=== PATIENT | female | born 1940 | race Caucasian/White ===

== ENCOUNTER → 2017-10-04 | Outpatient (CLI) | payer MEDICARE ==
[2014-10-19 12:02] VITALS: BMI 27.7
[~2017-10-04] MED LIST: ALPR-1 PO; ALPR-429 PO; ALPR-459 PO; AMOX875T60 PO; ASCO500C9 PO; ASPI-1471 PO; ASPI-757 PO; ATEN1TAB38 PO; CHOL20007 PO; CINN500C12 PO; CYAN500T54 PO; FAMO20TA28 PO; FISH1CAP15 PO; FLU45SYR25 IM ONLY; FOLI0.8T29 PO; GARL10005 PO; LEVO75TA73 PO; LUTE20CA11 PO; LUTE20TA PO; MAGN100T5 PO; MAGN250T34 PO; MECL-81 PO; MECL25TA9 PO; MULT1TAB64 PO; NAPR220C12 PO; NITR-105 PO; OMEG-24 PO; ONDA-2 PO; ONDA4TAB SL; POTA20TA85 PO; POTA20TA94 PO; PRED-1 PO; PRED20TA6 PO; PROM-110 PO; SCOT TD; SERT-184 PO; SIMV-49 PO; TRAM-420 PO; TRAZ-156 PO; UBID100C44 PO; UBID100C48 PO; VITA-175 PO; ZINC50TA43 PO
[2017-10-04 09:38] LABS: PLATELET COUNT, AUTOMATED 273 K/uL (150-450)
[2017-10-04 10:03] LABS: LDL CHOLESTEROL 131 mg/dl
== END ==
LOC: LAB 09:18
PROVIDERS: ATTEND Emergency Medicine
DX: E87.6 Hypokalemia (principal); E03.9 Hypothyroidism, unspecified; I10 Essential (primary) hypertension
CPT/HCPCS: 36415; 82040; 82247; 82310; 82374; 82435; 82465; 82565; 82947; 83718; 84075; 84132; 84155; 84295; 84443; 84450; 84460; 84478; 84520; 85025

== ENCOUNTER → 2017-12-30 | Outpatient (CLI) | payer MEDICARE ==
[2014-10-19 12:02] VITALS: BMI 27.7
[~2017-12-30] MED LIST changes: +DIPH0.5D12 IM; +EZET10TA41 PO
== END ==
LOC: LAB 08:46
PROVIDERS: ATTEND Emergency Medicine
DX: R19.7 Diarrhea, unspecified (principal)
CPT/HCPCS: 83630; 87045; 87177; 87324; 87338; 87449; G0328; 82274

== ENCOUNTER 2018-12-04 15:16 | Emergency (ER) | payer MEDICARE ==
[2014-10-19 12:02] VITALS: Wt 72.8 kg
[~2018-12-04 15:16] MED LIST changes: -DIPH0.5D12 IM; +DIPH0.5S2 IM; +FLU180SY11 IM; +MIRT-1 PO; +MIRT7.5T2 PO; -TRAZ-156 PO; +TRAZ50TA52 PO; +UBID100C34 PO; -UBID100C44 PO
--- NOTE | 2018-12-04 15:26 | ER Report ---
History and Physical Time Seen By MD: 15:26 HPI/ROS 78 y/o pleasant female with a history of migraine headaches, essential tremor, depression, and anxiety. She said she started the day with a mild OLGUIN. She and her daughter went on errands, and had lunch. After lunch her OLGUIN worsened, she became anxious, nauseous and weak. Now complains of generalized weakness and a OLGUIN. Not worse of life. No meningismus. No fever/chills. No abdominal pain. Remainder of the 14 system rev: Yes Allergies: Coded Allergies: trazodone (Verified Allergy, Severe, 12/04/18) oxycodone (Verified Allergy, Intermediate, NAUSEA/VOMITING, 12/04/18) hydrocodone (Unverified Allergy, Unknown, NAUSEA/VOMITING, 12/04/18) sertraline (Verified Adverse Reaction, Severe, Nausea, insomnia, anger, irritability, 12/04/18) tramadol (Verified Adverse Reaction, Severe, Tremors and jitteriness, 12/04/18) simvastatin (Verified Adverse Reaction, Intermediate, leg weakness, 12/04/18) Home Meds Active Scripts Atenolol/Chlorthalidone (ATENOLOL-CHLORTHAL 50-25 TB) 1 Each Tablet, 1 TAB PO QDAY, #90 TAB 2 Refills Prov:DENZEL IVEY MD 10/30/18 Mirtazapine (MIRTAZAPINE) 7.5 Mg Tablet, 7.5 MG PO DAILY, #90 TAB 3 Refills Prov:DENZEL IVEY MD 07/20/18 Alprazolam (ALPRAZOLAM) 0.25 Mg Tab.rapdis, 1 TAB PO BID, #120 TAB 4 Refills Take 1 in am, 1 in afternoon and two at night, total of 4/day. Prov:DENZEL IVEY MD 07/20/18 Potassium Chloride (KLOR-CON M20) 20 Meq Tab.er.prt, 1 TAB PO TID, #270 TAB 3 Refills Prov:DENZEL IVEY MD 05/04/18 Promethazine Hcl (PROMETHAZINE HCL) 25 Mg Tablet, 25 MG PO TID PRN for NAUSEA/VOMITING, #60 TAB 3 Refills Prov:DENZEL IVEY MD 05/02/18 Levothyroxine Sodium (LEVOTHYROXINE SODIUM) 75 Mcg Tablet, 75 MCG PO QDAY, #90 TAB 4 Refills Prov:DENZEL IVEY MD 05/02/18 Famotidine (PEPCID) 20 Mg Tablet, 20 MG PO QDAY, #90 TAB 3 Refills Prov:DENZEL IVEY MD 10/11/17 Reported Medications Magnesium Glycinate (MAG GLYCINATE) 100 Mg Tablet, 4 TAB PO DAILY 07/15/16 Meclizine Hcl (MECLIZINE HCL) 25 Mg Tablet, 1 TAB PO PRN PRN for DIZZINESS 03/23/16 Vitamin B Complex (B COMPLEX) 1 Each Tablet, 1 EACH PO QDAY, TAB 05/14/15 Fish Oil/Dha/Epa (FISH OIL 1,200 MG FISH OIL) 1 Each Capsule, 1 EACH PO BID, CAPSULE 05/13/15 Lutein (LUTEIN) 20 Mg Capsule, 1 CAP PO QDAY, CAPSULE 05/13/15 Aspirin (ASPIRIN) 325 Mg Tablet, 1 TAB PO QDAY, TAB 05/13/15 Multivitamin (MULTI VITAMIN DAILY) 1 Each Tablet, 1 EACH PO QDAY 04/07/15 Reviewed Nurses Notes: Yes Old Medical Records Reviewed: Yes Hx Smoking: No Smoking Status: Never Smoker Hx Substance Use Disorder: No Constitutional Vital Sign - Last 24 Hours 12/04/18 12/04/18 12/04/18 12/04/18 15:20 15:30 15:45 15:46 Temp 98.5 Pulse 76 ??? 73 Resp 18 22 B/P (MAP) 190/93 187/97 (127) 185/90 (121) Pulse Ox 90 87 O2 Delivery Room Air 12/04/18 12/04/18 12/04/18 12/04/18 16:00 16:15 16:30 16:45 Pulse 74 73 69 Resp 19 32 17 18 B/P (MAP) 177/88 (117) 179/99 (125) 167/82 (110) 165/78 (107) Pulse Ox 94 O2 Delivery Nasal Cannula O2 Flow Rate 1 12/04/18 12/04/18 12/04/18 12/04/18 16:50 16:55 17:00 17:05 Pulse ??? 70 68 68 Resp 17 7 14 20 B/P (MAP) 153/80 (104) Pulse Ox 82 12/04/18 12/04/18 12/04/18 17:10 17:15 17:20 Pulse 68 70 68 Resp 16 17 11 B/P (MAP) 153/70 (97) Physical Exam General Appearance: The patient is alert, has no immediate need for airway protection and no current signs of toxicity. Eyes: Pupils equal and round no injection. Respiratory: Chest is non tender, lungs are clear to auscultation. Cardiac: RRR, no m/r/g Gastrointestinal: Abdomen is soft and non tender, no masses, bowel sounds normal. Musculoskeletal: No focal TTP Neck: Neck is supple and non tender. Extremities have full range of motion and are non tender. Skin: No rashes or lesions. Neuro: CN in tact, normal strength and sensation, gait at baseline. DIFFERENTIAL DIAGNOSIS: After history and physical exam differential diagnosis was considered for headache including but not limited to subarachnoid hemorrhage, migraine headache, tension headache and infectious causes such as meningitis, pharyngitis and sinusitis. Medical Decision Making Data Points Result Diagram: 12/04/18 1555 12/04/18 1538 Laboratory Hematology Test 12/04/18 15:38 12/04/18 15:55 12/04/18 16:25 Sodium Level 135 mmol/L (137-145) Potassium Level 3.4 mmol/L (3.5-5.0) Chloride Level 98 mmol/L (98-107) Carbon Dioxide Level 25 mmol/L (22-31) Blood Urea Nitrogen 13 mg/dl (7-18) Creatinine 0.70 mg/dl (0.52-1.04) Glomerular Filtration Rate Calc > 60.0 Random Glucose 96 mg/dl (75-110) Calcium Level 9.5 mg/dl (8.4-10.2) Total Bilirubin 0.4 mg/dl (0.2-1.3) Aspartate Amino Transf (AST/SGOT) 37 U/L (0-35) Alanine Aminotransferase (ALT/SGPT) 36 U/L (0-56) Alkaline Phosphatase 84 U/L (0-126) Total Protein 8.3 g/dl (6.3-8.2) Albumin 4.6 g/dl (3.5-5.0) Red Blood Count 4.73 M/uL (4.17-5.56) Mean Corpuscular Volume 86.6 fL (80.0-96.0) Mean Corpuscular Hemoglobin 30.2 pg (26.0-33.0) Mean Corpuscular Hemoglobin Concent 34.9 g/dL (32.0-36.0) Red Cell Distribution Width 14.2 % (11.5-14.5) Mean Platelet Volume 7.0 fL (7.2-11.1) Neutrophils (%) (Auto) 59.7 % (39.4-72.5) Lymphocytes (%) (Auto) 27.2 % (17.6-49.6) Monocytes (%) (Auto) 10.1 % (4.1-12.4) Eosinophils (%) (Auto) 2.0 % (0.4-6.7) Basophils (%) (Auto) 1.0 % (0.3-1.4) Nucleated RBC Relative Count (auto) 0.0 /100WBC Neutrophils # (Auto) 5.1 K/uL (2.0-7.4) Lymphocytes # (Auto) 2.3 K/uL (1.3-3.6) Monocytes # (Auto) 0.9 K/uL (0.3-1.0) Eosinophils # (Auto) 0.2 K/uL (0.0-0.5) Basophils # (Auto) 0.1 K/uL (0.0-0.1) Nucleated RBC Absolute Count (auto) 0.00 K/uL Urine Color Yellow Urine Clarity Slightly-cloudy Urine pH 7.0 pH (4.8-9.5) Urine Specific [place] 1.008 Urine Protein Negative mg/dL (NEGATIVE) Urine Glucose (UA) Negative mg/dL (NEGATIVE) Urine Ketones Negative mg/dL (NEGATIVE) Urine Blood Negative (NEGATIVE) Urine Nitrite Negative (NEGATIVE) Urine Bilirubin Negative (NEGATIVE) Urine Urobilinogen Negative mg/dL (0.2-1.9) Urine Leukocyte Esterase Moderate (NEGATIVE) Urine RBC 3 /HPF (0-2/HPF) Urine WBC 4 /HPF (0-5/HPF) Urine Squamous Epithelial Cells None /LPF (NONE-FEW) Urine Bacteria Negative /HPF (NONE-FEW) Urine Mucus None /HPF (NONE-FEW) Chemistry Test 12/04/18 15:38 12/04/18 15:55 12/04/18 16:25 Glomerular Filtration Rate Calc > 60.0 Calcium Level 9.5 mg/dl (8.4-10.2) Total Bilirubin 0.4 mg/dl (0.2-1.3) Aspartate Amino Transf (AST/SGOT) 37 U/L (0-35) Alanine Aminotransferase (ALT/SGPT) 36 U/L (0-56) Alkaline Phosphatase 84 U/L (0-126) Total Protein 8.3 g/dl (6.3-8.2) Albumin 4.6 g/dl (3.5-5.0) White Blood Count 8.6 k/uL (4.5-11.0) Red Blood Count 4.73 M/uL (4.17-5.56) Hemoglobin 14.3 g/dL (12.0-16.0) Hematocrit 41.0 % (34.0-47.0) Mean Corpuscular Volume 86.6 fL (80.0-96.0) Mean Corpuscular Hemoglobin 30.2 pg (26.0-33.0) Mean Corpuscular Hemoglobin Concent 34.9 g/dL (32.0-36.0) Red Cell Distribution Width 14.2 % (11.5-14.5) Platelet Count 233 K/uL (150-450) Mean Platelet Volume 7.0 fL (7.2-11.1) Neutrophils (%) (Auto) 59.7 % (39.4-72.5) Lymphocytes (%) (Auto) 27.2 % (17.6-49.6) Monocytes (%) (Auto) 10.1 % (4.1-12.4) Eosinophils (%) (Auto) 2.0 % (0.4-6.7) Basophils (%) (Auto) 1.0 % (0.3-1.4) Nucleated RBC Relative Count (auto) 0.0 /100WBC Neutrophils # (Auto) 5.1 K/uL (2.0-7.4) Lymphocytes # (Auto) 2.3 K/uL (1.3-3.6) Monocytes # (Auto) 0.9 K/uL (0.3-1.0) Eosinophils # (Auto) 0.2 K/uL (0.0-0.5) Basophils # (Auto) 0.1 K/uL (0.0-0.1) Nucleated RBC Absolute Count (auto) 0.00 K/uL Urine Color Yellow Urine Clarity Slightly-cloudy Urine pH 7.0 pH (4.8-9.5) Urine Specific [place] 1.008 Urine Protein Negative mg/dL (NEGATIVE) Urine Glucose (UA) Negative mg/dL (NEGATIVE) Urine Ketones Negative mg/dL (NEGATIVE) Urine Blood Negative (NEGATIVE) Urine Nitrite Negative (NEGATIVE) Urine Bilirubin Negative (NEGATIVE) Urine Urobilinogen Negative mg/dL (0.2-1.9) Urine Leukocyte Esterase Moderate (NEGATIVE) Urine RBC 3 /HPF (0-2/HPF) Urine WBC 4 /HPF (0-5/HPF) Urine Squamous Epithelial Cells None /LPF (NONE-FEW) Urine Bacteria Negative /HPF (NONE-FEW) Urine Mucus None /HPF (NONE-FEW) Urinalysis Test 12/04/18 16:25 Urine Color Yellow Urine Clarity Slightly-cloudy Urine pH 7.0 pH (4.8-9.5) Urine Specific [place] 1.008 Urine Protein Negative mg/dL (NEGATIVE) Urine Glucose (UA) Negative mg/dL (NEGATIVE) Urine Ketones Negative mg/dL (NEGATIVE) Urine Blood Negative (NEGATIVE) Urine Nitrite Negative (NEGATIVE) Urine Bilirubin Negative (NEGATIVE) Urine Urobilinogen Negative mg/dL (0.2-1.9) Urine Leukocyte Esterase Moderate (NEGATIVE) Urine RBC 3 /HPF (0-2/HPF) Urine WBC 4 /HPF (0-5/HPF) Urine Squamous Epithelial Cells None /LPF (NONE-FEW) Urine Bacteria Negative /HPF (NONE-FEW) Urine Mucus None /HPF (NONE-FEW) ED Course/Re-evaluation ED Course No focal neuro deficits. No new findings on CT head. No fever to suggest infectious cause of OLGUIN. OLGUIN improved with Toradol. No chest pain, abdominal pain, SOB, n/v/d. Was at her baseline earlier today other than her OLGUIN. Ambulated in the ED, and daughter states her gait is at baseline. No UTI, no PNA. No need for further imaging. I think she has a migraine OLGUIN which caused her to become anxious. She states that she feels better. Her daughter watches her closely, and will monitor her over the next few days. She will follow up with Dr. Ivey. Decision to Disposition Date: Dec 04, 2018 Decision to Disposition Time: 17:47 Depart Departure Latest Vital Signs Vital Signs Date Time Temp Pulse Resp B/P (MAP) Pulse Ox O2 Delivery O2 Flow Rate FiO2 12/04/18 17:20 68 11 12/04/18 17:15 153/70 (97) 12/04/18 16:50 82 12/04/18 16:00 Nasal Cannula 1 12/04/18 15:20 98.5 Impression: Primary Impression: Migraine headache Condition: Improved Disposition: HOME OR SELF-CARE Referrals: DENZEL IVEY MD (PCP) Patient Instructions: Migraine Headache (ED) Problem Qualifiers Primary Impression: Migraine headache Migraine type: without aura Status migrainosus presence: without status migrainosus Intractability: not intractable Qualified Codes: G43.009 - Migraine without aura, not intractable, without status migrainosus NIKOLAI URBAN MD Dec 04, 2018 15:26
--- NOTE | 2018-12-04 15:47 | RADIOLOGY IMAGING REPORT ---
FACILITY: [facility] PATIENT NAME: Ann Hall : 1940 MR: [id number] V: [id number] EXAM DATE: ORDERING PHYSICIAN: NIKOLAI URBAN TECHNOLOGIST: Location: [facility] - [place] Patient: Ann Hall : 1940 Visit/Account:[id number] Date of Sevice: 12/04/[address] scan without contrast COMPARISONS: None ADDITIONAL PERTINENT HISTORY: Headache with altered mental status. TECHNIQUE: Multiple axial images were obtained from the skull base to the vertex without IV contrast . One of the following dose optimization techniques was utilized in the performance of this exam: Aut omated exposure control; adjustment of the mA and/or kV according to the patient's size; or use of an iterative reconstruction technique. Specific details can be referenced in the facility's radiology CT exam operational policy. FINDINGS: Midline shift: Negative Ventricles: Mild enlargement of the lateral and third ventricles. Brain parenchyma: Patchy hypoattenuation within the periventricular and subcortical white matter, no nspecific but likely representing small vessel ischemic change on a chronic basis. No intraparenchyma l hemorrhage. Extra-axial spaces: Mild cerebral atrophy. Intracranial vasculature: Negative Osseous structures: Negative Paranasal sinuses and mastoid air cells: Negative Surrounding soft tissues and orbits: Negative IMPRESSION: 1. Age related changes as described above. 2. No evidence of acute intracranial pathology. Report Dictated By: Karl Steven MD at 12/04/2018 3:40 PM Report E-Signed By: Karl Steven MD at 12/04/2018 3:42 PM WSN:[id number]
[2018-12-04] MEDS ORDERED: NS(*) 0.9% 1000 ML BAG 1,000 ML IV ONE (16:00)
--- NOTE | 2018-12-04 16:03 | EKG ---
FACILITY: [facility] PATIENT NAME: CHEMA TORRES : [id number] MR: [id number] V: [id number] EXAM DATE: ORDERING PHYSICIAN: NIKOLAI URBAN TECHNOLOGIST: Test Reason : Blood Pressure : / mmHG Vent. Rate : 070 BPM Atrial Rate : 070 BPM P-R Int : 218 ms QRS Dur : 094 ms QT Int : 398 ms P-R-T Axes : 048 -15 004 degrees QTc Int : 429 ms Sinus rhythm with 1st degree AV block Left axis Nonspecific interventricular conduction delay Nonspecific T wave findings which are similar to previous EKGs Abnormal ECG Confirmed by DORIS ROCHA ([id number]) on 12/04/2018 8:20:28 PM Referred By: Confirmed By:DORIS ROCHA
[2018-12-04 16:07] LABS: PLATELET COUNT, AUTOMATED 233 K/uL (150-450)
--- NOTE | 2018-12-04 16:49 | RADIOLOGY IMAGING REPORT ---
FACILITY: [facility] - [place] PATIENT NAME: Ann Hall : 1940 MR: [id number] V: [id number] EXAM DATE: ORDERING PHYSICIAN: NIKOLAI URBAN TECHNOLOGIST: [place] [facility] [place] Patient: Ann Hall : 1940 Visit/Account:[id number] Date of Sevice: 12/04/2018 Exam type: CHEST SINGLE AP History: generalized weakness, chills Comparison: January 16, 2014. Findings: The lungs are free of acute effusions, infiltrates or edema. The cardiac silhouette is normal in siz e. There is mild ectasia the thoracic aorta. Extensive vascular calcifications are seen in both ranjith es of the neck. IMPRESSION: 1. No acute cardiopulmonary process is seen Extensive vascular calcifications are seen in both sides of the neck Report Dictated By: Rosalba Mo MD at 12/04/2018 4:44 PM Report E-Signed By: Rosalba Mo MD at 12/04/2018 4:45 PM WSN:[id number]
[2018-12-04 17:15] VITALS: BP 153/70
[2018-12-04] MEDS ORDERED: KETOROLAC 30 MG/ML VIAL IVP ONE (17:35)
== END 2018-12-04 17:54 | disposition home or self-care (01) ==
LOC: ER 15:28
DX: G43.009 Migraine without aura, not intractable, without status migrainosus (principal)
CPT/HCPCS: 70450; 71045; 81001; 85025; 93005; 96361; 96374; 99284; A4353; J1885; J7030; 82040; 82247; 82310; 82374; 82435; 82565; 82947; 84075; 84132; 84155; 84295; 84450; 84460; 84520